=== PATIENT | male | born 2000 | race Caucasian/White ===

== ENCOUNTER 2025-08-01 07:55 | Emergency (ER) | payer OTHER ==
[~2025-08-01] VITALS: Ht 170.2 cm; Wt 61.4 kg
[2025-08-01] MEDS ORDERED: LEVO112T2 PO (08:30)
[2025-08-01] MEDS ORDERED: CEPH500C PO (09:27)
[2025-08-01] MEDS ORDERED: BACI500O8 TOP (09:27)
[2025-08-01] MEDS: CEPHALEXIN 500 MG CAP PO ONE (09:40)
[2025-08-01 09:56] VITALS: BP 124/68; TEMP 97.7; O2SAT 98
== END 2025-08-01 10:00 | disposition home or self-care (01) ==
LOC: M ED 07:55
DX: S62.665A Nondisplaced fracture of distal phalanx of left ring finger, initial encounter for closed fracture (principal); S61.215A Laceration without foreign body of left ring finger without damage to nail, initial encounter; Y92.9 Unspecified place or not applicable; Y93.9 Activity, unspecified; Y99.0 Civilian activity done for income or pay; W23.1XXA Caught, crushed, jammed, or pinched between stationary objects, initial encounter; Z79.2 Long term (current) use of antibiotics; Z79.899 Other long term (current) drug therapy